=== PATIENT | female | born 1995 | race Two or more races ===

== ENCOUNTER 2023-02-19 07:46 | Emergency (ER) | payer BC, MEDICAID ==
[~2023-02-19] VITALS: Ht 157.5 cm; Wt 58.0 kg
[2023-02-19 08:03] VITALS: BP 115/70
[2023-02-19] MEDS ORDERED: IBUPROFEN 800 MG TAB PO ONE (08:15)
[2023-02-19] MEDS ORDERED: IBUP-1455 PO (09:00)
== END 2023-02-19 09:23 | disposition home or self-care (01) ==
LOC: EDBD 07:46 → ER 07:46
DX: S50.11XA Contusion of right forearm, initial encounter (principal); Y04.8XXA Assault by other bodily force, initial encounter; Y93.89 Activity, other specified; Y92.89 Other specified places as the place of occurrence of the external cause; Y99.8 Other external cause status
CPT/HCPCS: 73080; 73090